=== PATIENT | male | born 1955 | race Two or more races ===

== ENCOUNTER 2019-09-09 09:08 | Day surgery (SDC) | payer MEDICARE, MEDICAID ==
[2019-09-09] VITALS (8 sets, daily range): BP systolic 124–159; BP diastolic 66–84
[~2019-09-09] VITALS: Ht 177.8 cm; Wt 83.0 kg
[~2019-09-09 09:08] MED LIST: FLOMAX0.4 MG ORAL; GLIPIZIDE5 MG ORAL; LOPRESSOR HCT1 EAC3 ORAL; METFORMIN HCL500 M1 ORAL; PROSCAR5 MG ORAL; TYLENOL EXTRA500 MG ORAL
[2019-09-09] MEDS ORDERED: Atropine Inj 1mg/10ml Syr IV PRN (09:30)
[2019-09-09] MEDS ORDERED: DiphenhydrAMINE 50mg/ml Inj IVP PRN (09:30)
[2019-09-09] MEDS ORDERED: fentaNYL 100 mcg/2 mL IV PRN (09:30)
[2019-09-09] MEDS ORDERED: LR 1000ml 1,000 ML IVLG SCH ×2 (09:30)
[2019-09-09] MEDS ORDERED: Midazolam 2mg/2ml Inj IVP PRN (09:30)
--- NOTE | 2019-09-09 09:33 | Anethesia Preoperative Eval ---
Anesthesia Pre-op PMH/ROS General Date of Evaluation: Sep 09, 2019 Time of Evaluation: 09:31 Anesthesiologist: elida ASA Score: ASA 3 Mallampati Score Class I : Soft palate, uvula, fauces, pillars visible Class II: Soft palate, uvula, fauces visible Class III: Soft palate, base of uvula visible Class IV: Only hard plate visible Mallampati Classification: Class II Surgeon: magnus Diagnosis: anemia, abdominal pain Surgical Procedure: egd Anesthesia History: none Social History: smoking - former smoker Family History: no anesthesia problems Allergies: Coded Allergies: No Known Allergies (Unverified , 09/07/19) Medications: see eMAR Patient NPO?: Yes Past Medical History Cardiovascular: Reports: HTN Gastrointestinal/Genitourinary: Reports: other - abdominal pain, uti Endocrine: Reports: DM Hematology/Immune: Reports: anemia PSxH Narrative: appendectomy Anesthesia Pre-op Phys. Exam Physician Exam Last Vital Signs Date Time Temp Pulse Resp B/P (MAP) Pulse Ox O2 Delivery O2 Flow Rate FiO2 09/09/19 09:44 Room Air 09/09/19 09:42 98.0 96 18 159/84 99 Constitutional: NAD Neurologic: CN 2-12 intact Cardiovascular: RRR Respiratory: CTA Gastrointestinal: S/NT/ND Airway Exam Mallampati Score: Class II MO: limited Neck: flexible TMD: 2fb ROM: limited Anesthesia Pre-op A/P Labs covid-19 negative Risk Assessment & Plan Assessment: asa3 Plan: mac Status Change Before Surgery: No Pre-Antibiotics Drug: Lina King MD Sep 09, 2019 09:33
[2019-09-09] MEDS ORDERED: Lidocaine 1% MPF 10mg/ml 5ml ONE (11:00)
[2019-09-09] MEDS ORDERED: LR 1000ml ONE (11:00)
--- NOTE | 2019-09-09 11:22 | Short Stay Surgery H&P ---
History of Present Illness History of Present Illness Chief Complaint see typed note HPI Daren Ravi is a 63 year old male who was admitted on for Anemia And Abdominal Pain Patient History Allergies: Coded Allergies: No Known Allergies (Unverified , 09/07/19) Medication History Scheduled Finasteride* (Proscar*), 5 MG ORAL DAILY, (Reported) Glipizide* (Glipizide*), 4 MG ORAL DAILY, (Reported) Metformin Hcl* (Metformin Hcl*), 500 MG ORAL TWICE A DAY, (Reported) Metoprolol/Hydrochlorothiazide (Lopressor Hct 50-25 Tablet), 1 TAB ORAL DAILY, ( Reported) Tamsulosin HCl (Flomax), 0.4 MG ORAL DAILY, (Reported) Scheduled PRN Acetaminophen* (Tylenol Extra Strength*), 500 MG ORAL Q6H PRN for Mild Pain/ Temp > 100.5, (Reported) Physical Exam Vital Signs Last Vital Signs Date Time Temp Pulse Resp B/P (MAP) Pulse Ox O2 Delivery O2 Flow Rate FiO2 09/09/19 09:44 Room Air 09/09/19 09:42 98.0 96 18 159/84 99 Plan Attestation Are the patient's medical conditions optimized for surgery? Prabha Christian MD Sep 09, 2019 11:22
--- NOTE | 2019-09-09 11:23 | Pre-Procedure Note/Attestation ---
Pre-Procedure Note/Attestation Complete Prior to Procedure Planned Procedure: not applicable Procedure Narrative: esophagogastroduodenoscopy colon Indications for Procedure Pre-Operative Diagnosis: anemia Attestation I attest that I discussed the nature of the procedure; its benefits; risks and complications; and alternatives (and the risks and benefits of such alternatives ), prior to the procedure, with the patient (or the patient's legal dealer compliance representative). I attest that, if there was a reasonable possibility of needing a blood transfusion, the patient (or the patient's legal dealer compliance representative) was given the [facility] standardized written summary, pursuant to the [place] Blood Safety Act ([place] Health and Safety Code # 1645, as amended). I attest that I re-evaluated the patient just prior to the surgery and that there has been no change in the patient's H&P, except as documented below: Prabha Christian MD Sep 09, 2019 11:23
--- NOTE | 2019-09-09 13:44 | Immediate Post-Op Evaluation ---
Immediate Post-Op Evalulation Immediate Post-Op Evalulation Procedure: egd/colonoscopy w/bx Date of Evaluation: Sep 09, 2019 Time of Evaluation: 12:24 IV Fluids: 650ml lr Blood Products: none Estimated Blood Loss: negligible Blood Pressure Systolic: 126 Blood Pressure Diastolic: 75 Pulse Rate: 87 Respiratory Rate: 18 O2 Sat by Pulse Oximetry: 100 Temperature (Fahrenheit): 98.4 Pain Score (1-10): 0 Nausea: No Vomiting: No Complications none Patient Status: awake, reacts, patent Hydration Status: adequate Drug: Lina King MD Sep 09, 2019 13:44
--- NOTE | 2019-09-09 13:45 | 48 Hour Post Anesthesia Eval ---
Post Anesthesia Evaluation Procedure: egd/colonoscopy w/bx Date of Evaluation: Sep 09, 2019 Time of Evaluation: 12:26 Blood Pressure Systolic: 124 0: 78 Pulse Rate: 82 Respiratory Rate: 18 Temperature (Fahrenheit): 98.4 O2 Sat by Pulse Oximetry: 100 Airway: patent Nausea: No Vomiting: No Pain Intensity: 0 Hydration Status: adequate Cardiopulmonary Status: stable Mental Status/LOC: patient returned to baseline Post-Anesthesia Complications: none Follow-up care needed: N/A Lina Maria MD Sep 09, 2019 13:45
--- NOTE | 2019-09-10 16:30 | Procedure Note ---
DATE OF PROCEDURE: 09/09/2019 GASTROENTEROLOGY PROCEDURE PROCEDURE: Upper gastrointestinal endoscopy with biopsy as well as colonoscopy with biopsy. SURGEON: Prabha Christian MD. ANESTHESIA: Please see the separate anesthesiologist notes for details. PRE-ENDOSCOPIC DIAGNOSIS: Mild anemia. POST-ENDOSCOPIC DIAGNOSES: 1. Mild gastric erythema status post random biopsies of the duodenum and antrum. 2. Diminutive polyp in the cecum close to the appendix, status post biopsy removal. 3. Diminutive distal ascending colon polyp, status post biopsy removal. 4. Diminutive distal descending colon polyp status post biopsy removal. 5. Internal hemorrhoids. 6. Abnormal digital examination of the prostate consistent with the patient's known prostate cancer. PROCEDURE IN DETAIL: The procedure, its risks, indications, alternatives, and possible complications were explained to the patient and informed consent was obtained. The patient was then sedated in the left lateral decubitus position. A diagnostic upper endoscope was introduced through oropharynx and advanced to the duodenum without difficulty. The endoscope was then gradually withdrawn and mucosa examined carefully. Examination of upper gastrointestinal mucosa revealed some mild erythema in the stomach of doubtful significance. Biopsies of the antrum and duodenum were sent to pathology for review. Thereafter, the endoscope was removed and colonoscope was introduced into the rectum and advanced to the cecum. The cecum was identified by the appearance of the ileocecal valve and the appendiceal orifice. The colonoscope was then gradually withdrawn and mucosa examined carefully. Examination of the colonic mucosa revealed three diminutive polyps as described above, which was removed with biopsy forceps without complications. The retroflexed view as well as exit anal canal views of the rectal area showed internal hemorrhoids. The digital examination of the prostate showed irregular prostate exam with nodularity and asymmetry consistent with the patient's known history of prostate cancer. Colonoscope was removed and the patient was sent to recovery in good condition. COMPLICATIONS: None. RECOMMENDATIONS: 1. Followup biopsy results. 2. I proceed with surgery as planned. 3. Repeat colonoscopy in 3 to 5 years. Thank you for asking me to participate in the care of this patient. Prabha Christian M.D. DR: Davion JOB#: [id number] CC: Jenn Villareal M.D.; Fax#: [phone] [facility]
--- NOTE | 2019-09-11 07:19 | Endoscopy Procedure Note ---
Endoscopy Procedure Note General Indication for Procedure: anemia Procedures Performed: EGD, colonoscopy Operative Findings/Diagnosis: polyps, rhoid, prostate CA Specimen: yes Pt Tolerated Procedure Well: Yes Estimated Blood Loss: none Anesthesia Anesthesiologist: see report Anesthesia: moderate sedation Inserted Devices Implant(s) used?: No GI Core Measures 50 yrs or older w/o bx or poly: Not Applicable 10yrs. F/U recommended: Not Applicable Prabha Christian MD Sep 11, 2019 07:19
--- NOTE | 2019-09-11 07:20 | Brief Operative Note ---
Immediate Post Operative Note Operative Note Chief Complaint: anemia Pre-op Diagnosis: anemia Procedure: EGD Colon Post-op Diagnosis: polyps, rhoid, prostate CA Surgeon: magnus Anesthesiologist: see report Anesthesia: MAC Specimen: yes Complications: none Condition: stable Fluids: see report Implant(s) used?: No Prabha Christian MD Sep 11, 2019 07:20
== END 2019-09-09 13:10 | disposition home or self-care (01) ==
LOC: GAS 09:08
DX: D64.9 Anemia, unspecified (principal); K63.5 Polyp of colon; K64.8 Other hemorrhoids; K29.50 Unspecified chronic gastritis without bleeding; D12.2 Benign neoplasm of ascending colon; D12.0 Benign neoplasm of cecum; D12.4 Benign neoplasm of descending colon; Z79.899 Other long term (current) drug therapy; Z79.84 Long term (current) use of oral hypoglycemic drugs; E11.9 Type 2 diabetes mellitus without complications; Z90.89 Acquired absence of other organs; Z87.891 Personal history of nicotine dependence; Z85.46 Personal history of malignant neoplasm of prostate
CPT/HCPCS: 43239; 45380; 94003; J0360; J2704; J7120; 94150